=== PATIENT | male | born 1950 | race Caucasian/White ===

== ENCOUNTER 2016-05-24 12:02 | Day surgery (SDC) | payer MEDICARE, BC ==
--- NOTE | ~2016-05-24 | OP ---
Record Of Operation [facility] [address] [place]. [address] NAME: SULEMA SALINAS : 52 STATUS : [facility]#: [id number] AGE: 66 ADM/REG DATE : 05/24/16 MR#: [id number] REPORT SERV DATE: 05/24/16 DICTATED BY: JIGNA RENO III DATE: 05/24/16 REPORT STATUS : Draft TRANSCRIBED BY: MODL DATE: 05/24/16 DATE OF PROCEDURE: 05/24/2016 PROCEDURE: Transrectal ultrasound of the prostate and transrectal biopsies. PREOPERATIVE DIAGNOSIS: Elevated PSA. POSTOPERATIVE DIAGNOSIS: Elevated PSA. ANESTHESIA: MAC. DESCRIPTION OF PROCEDURE: The patient was placed in the left lateral position. Under MAC anesthesia, the probe was inserted. Volume was measured at approximately 35 mL to 40 mL. No definite hypoechoic areas were noted. Biopsies were taken from the base, mid gland, and apex in a laterally directed fashion covering the peripheral zone and transition zone. Three biopsies were taken from each area. The patient tolerated the procedure well. There was some bleeding at the end and a foam sponge was placed in the rectum. He will be taken to phase 2 and will be discharged when voiding and taking fluids. I did discuss with him in the office the fact that he must call for a temp of over 100. He will follow up with me in four to six weeks. OB/MODL Jigna Reno III, M.D. / [id number] CC: Jigna Reno III, M.D.
[~2016-05-24 12:02] MED LIST: CARTIA XT120 MG/24 PO; LOTE20 PO; [UNRECOGNIZED DRUG - OTHER]
[2016-12-01] MEDS ORDERED: BEN25 PO (11:53)
[2016-12-03] MEDS ORDERED: NORCO1 TA1 PO (07:41)
[2016-12-03] MEDS ORDERED: MOMUD PO (07:41)
== END 2016-05-24 15:29 | disposition home or self-care (01) ==
LOC: SDC 12:02
PROVIDERS: Urology
PROC: 0VB07ZX Excision of Prostate, Via Natural or Artificial Opening, Diagnostic (ICD-10-PCS; principal; 2016-05-24 13:15)
DX: R97.20 Elevated prostate specific antigen [PSA] (principal); I10 Essential (primary) hypertension; Z88.8 Allergy status to other drugs, medicaments and biological substances; Z88.5 Allergy status to narcotic agent; Z79.899 Other long term (current) drug therapy; H91.90 Unspecified hearing loss, unspecified ear; Z98.890 Other specified postprocedural states
CPT/HCPCS: 76872; 76998; 80048; 85025; 88305; 93005